=== PATIENT | male | born 1990 | race Two or more races ===

== ENCOUNTER → 2024-04-23 | Outpatient (CLI) | payer MEDICAID, SELFPAY ==
--- NOTE | 2024-04-23 10:30 | XR_ITS ---
Examination: Abdomen sonogram, complete Date and time of exam: April 23, 2024 1057 hours INDICATIONS: Heartburn and acid reflux symptoms beginning one year ago. Technique: Multiple real-time grayscale transabdominal sonographic images of the abdomen have been obtained. Findings: 21 mm gallstone in the gallbladder neck Mobile Gallbladder wall 0.3 cm no edema Common bile duct 0.3 cm Pancreatic head 3.3 cm Aorta not enlarged Liver 16.7 cm fatty infiltration no focal liver lesions Normal hepatopedal portal venous flow Patent IVC Right kidney 11.4 x 5.7 x 6.2 cm renal cortex 1.6 cm Left kidney 11.7 x 6.0 x 5.5 cm cortex 3.0 cm Mild to moderate bilateral renal parenchymal scar formation Minimal left hydronephrosis Spleen 10.5 cm IMPRESSION: Cholelithiasis, negative for cholecystitis Mild hepatomegaly fatty liver Mild to moderate bilateral renal parenchymal scar formation Minimal left hydronephrosis
== END | disposition home or self-care (01) ==
PROVIDERS: PCP Nurse Practitioner Family; Referring Provider Nurse Practitioner Family; Visit Provider Nurse Practitioner Family
DX: K80.20 Calculus of gallbladder without cholecystitis without obstruction (principal); K76.0 Fatty (change of) liver, not elsewhere classified; N28.89 Other specified disorders of kidney and ureter; N13.30 Unspecified hydronephrosis
CPT/HCPCS: 76700